=== PATIENT | female | born 1965 | race Caucasian/White ===

== ENCOUNTER → 2016-03-26 17:17 | Outpatient (CLI) | payer MEDICAID ==
[2014-06-06 10:45] VITALS: BMI 24.5
[~2016-03-26 17:17] MED LIST: PERCOCET 10/3251 TA1 PO
== END | disposition home or self-care (01) ==
LOC: D.MAMMO 02-27 15:00
DX: N64.89 Other specified disorders of breast (principal)

== ENCOUNTER 2018-03-21 08:00 | Outpatient (CLI) | payer BC ==
[2014-06-06 10:45] VITALS: BMI 24.5
== END 2018-03-21 09:00 | disposition home or self-care (01) ==
LOC: D.MAMMO 08:00
DX: Z12.31 Encounter for screening mammogram for malignant neoplasm of breast (principal)

== ENCOUNTER → 2018-04-13 23:06 | Outpatient (CLI) | payer MEDICAID ==
[2014-06-06 10:45] VITALS: BMI 24.5
== END | disposition home or self-care (01) ==
LOC: D.MAMMO 15:00
PROVIDERS: ATTEND Family Medicine
DX: N64.89 Other specified disorders of breast (principal); R92.8 Other abnormal and inconclusive findings on diagnostic imaging of breast